=== PATIENT | male | born 1980 | race Caucasian/White ===

== ENCOUNTER 2018-06-25 08:48 | Emergency (ER) | payer BC, OTHER ==
[~2018-06-25] VITALS: Ht 190.5 cm; Wt 107.0 kg
--- OUTSIDE RECORDS SUMMARY | 2018-06-25 08:55 | XMS REPORT ---
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 Name Role Phone MANN LOVE Unavailable PROBLEMS Type Condition ICD9-CM Code [id number] Code Onset Dates Condition Status SNOMED Code Problem Allergic rhinitis, unspecified seasonality, unspecified trigger J30.9 Active 97994308 ALLERGIES Substance Reaction Event Type Date Status Azithromycin Unknown Drug Allergy Feb, Active Codeine Unknown Drug Allergy Feb, Active ENCOUNTERS Encounter Location Date Diagnosis [facility] [address] [place] [address] Mar, [facility] [address] [place] [address] Feb, Dental examination Z01.20 and Caries K02.9 [place] [id number] [place] [address] Feb, Physical exam Z00.00 and Other urethral stricture, male, unspecified site N35.819 [place] [address] [address] Jan, 2018 Allergic rhinitis, unspecified seasonality, unspecified trigger J30.9 ; Dysfunction of both eustachian tubes H69.83 and Stricture of 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, unspecified stricture type N35.911 [facility] [address] [address] Oct, Dental examination Z01.20 [facility] [id number] [place] [address] Jul, [place] [address] [place] [address] Jul, [place] [id number] [address] Jan, [facility] [address] [address] Jan, [facility] [address] [address] Jan, [facility] [address] [address] Jan, [facility] [address] [address] Dec, [facility] [address] [place] [id number] Nov, [facility] [address] [place] [address] Sep, [facility] [id number] [address] Sep, [facility] [address] [address] Sep, IMMUNIZATIONS No Known Immunizations SOCIAL HISTORY Never Assessed REASON FOR VISIT Katiana MANZANO PLAN OF CARE Activity Details Follow Up 45 MIN SURG TE Reason:TE #2 SURG VITAL SIGNS MEDICATIONS Medication Instructions Dosage Frequency Start Date End Date Duration Status Albuterol Sulfate 0.63 mg/3 mL Sep, Not-Taking Flonase 50 mcg/actuation 1 sprays by Nasal route 2 times per dayin each nostril Jan, Not-Taking Amoxicillin 500 mg Orally every 6 hrs 1 capsule 6h Feb, 7 days Active Flonase 50 mcg/act Nasally Once a day 1 spray in each nostril 24h Jan, 30 day(s) Not-Taking PredniSONE 20 mg Orally Once a day 2 tablets 24h Jan, 5 days Not-Taking Magic Mouthwash Apply medicated swab to sore areas of the mouth to numb the pain As needed Dip cotton swab into medication Feb, As needed Active RESULTS No Results PROCEDURES Procedure Date Ordered Result Body Site LTD ORAL EVALUATION - PROBLEM FOCUS Mar 16, 2018 INTRAORL-PERIAPICAL 1 FILM 44649 Mar 16, 2018 INSTRUCTIONS MEDICATIONS ADMINISTERED No Known Medications MEDICAL (GENERAL) HISTORY Type Description Date Medical History asthma Surgical History Hernia repair 2016 Surgical History hernia repair 2001
--- OUTSIDE RECORDS SUMMARY | 2018-06-25 08:56 | XMS REPORT ---
Author HEATHER Simmons e[employer] Address Unknown Phone Unavailable Care Team Providers Care Reel Slitter Name Role Phone HEATHER CANTU CP Unavailable Allergies, Adverse Reactions, Alerts Substance Reaction Event Type Azithromycin Info Not Available Drug Allergy Codeine Info Not Available Drug Allergy Problems Problem Type Condition Code Onset Dates Condition Status Problem Personal history of other allergy, other than to medicinal agents V15.09 Active Problem Pain in thoracic spine 724.1 Active Problem Acute serous otitis media 381.01 Active Problem Abdominal pain, unspecified site 789.00 Active Assessment Dental examination Z01.20 Active Medications No Known Medications Procedures Procedure Coding System Code Date PANORAMIC FILM SEE ALSO CODE 59960 CPT-4 D0330 November 11, 2015 LTD ORAL EVALUATION - PROBLEM FOCUS CPT-4 D0140 November 11, 2015 Results No Known Results Summary Purpose eClinicalWorks Submission
--- OUTSIDE RECORDS SUMMARY | 2018-06-25 08:56 | XMS REPORT ---
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 Name Role Phone REX ERNANDEZ Unavailable PROBLEMS Type Condition ICD9-CM Code [id number] Code Onset Dates Condition Status SNOMED Code Problem Allergic rhinitis, unspecified seasonality, unspecified trigger J30.9 Active 51936229 ALLERGIES Substance Reaction Event Type Date Status Azithromycin Unknown Drug Allergy Feb, Active Codeine Unknown Drug Allergy Feb, Active ENCOUNTERS Encounter Location Date Diagnosis [facility] [id number] [place] [address] Feb, Physical exam Z00.00 and Other urethral stricture, male, unspecified site N35.819 [facility] [place] [id number] [place] [address] 17 Jan, 2018 Allergic rhinitis, unspecified seasonality, unspecified trigger J30.9 ; Dysfunction of both eustachian tubes H69.83 and Stricture of 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, unspecified stricture type N35.911 [place] [address] [address] Oct, Dental examination Z01.20 [facility] [place] [address] [place] [address] Jul, [place] [id number] [place] [address] Jul, [place] [id number] [place] [address] Jan, [place] [id number] [address] Jan, [place] [address] [place] [address] Jan, [facility] [place] [address] [facility] [id number] [address] Jan, [facility] [place] [address] [facility] [id number] [address] Dec, [facility] [place] [id number] [address] Nov, [facility] [place] [id number] [address] Sep, [facility] [place] [id number] [address] Sep, [facility] [place] [id number] [address] Sep, IMMUNIZATIONS No Known Immunizations SOCIAL HISTORY Never Assessed REASON FOR VISIT Physical Pt in for physical, states he is concerned that is b/p is usually elevated. OTIS Cordoba PLAN OF CARE Activity Details Follow Up prn. 3 months or as indicated by lab Reason: Pending Test LIPID PANEL Pending Test CMP Pending Test CBC VITAL SIGNS Height 75 in 2018-02-22 Weight 235.4 lbs 2018-02-22 Temperature 97.8 degrees Fahrenheit 2018-02-22 Heart Rate 76 bpm 2018-02-22 Respiratory Rate 18 2018-02-22 BMI 29.42 kg/m2 2018-02-22 Blood pressure systolic 112 mmHg 2018-02-22 Blood pressure diastolic 72 mmHg 2018-02-22 MEDICATIONS Medication Instructions Dosage Frequency Start Date End Date Duration Status PredniSONE 20 mg Orally Once a day 2 tablets 24h Jan, 5 days Not-Taking Clobetasol Propionate 0.05 % Externally Twice a day 1 application to affected area 12h Feb, Feb, 10 day(s) Active Flonase 50 mcg/actuation 1 sprays by Nasal route 2 times per dayin each nostril Jan, Not-Taking Albuterol Sulfate 0.63 mg/3 mL Sep, Not-Taking Flonase 50 mcg/act Nasally Once a day 1 spray in each nostril 24h Jan, 30 day(s) Not-Taking RESULTS No Results PROCEDURES Procedure Date Ordered Result Body Site COMPLETE CBC W/AUTO DIFF WBC Feb 22, 2018 LIPID PANEL Feb 22, 2018 COMPREHEN METABOLIC PANEL Feb 22, 2018 INSTRUCTIONS MEDICATIONS ADMINISTERED No Known Medications MEDICAL (GENERAL) HISTORY Type Description Date Medical History asthma Surgical History Hernia repair 2016 Surgical History hernia repair 2002
--- NOTE | 2018-06-25 09:23 | ED Abdominal Pain ---
General Chief Complaint: Back, left testicle, left buttock and rectal region pain Stated Complaint: RECTAL/TESTICAL/BACK PAIN Source of Information: Patient Exam Limitations: No Limitations History of Present Illness Date Seen by Provider: Jun 25, 2018 Time Seen by Provider: 09:12 38 y/o M with history of L testicular varicocele presents with intermittent non- radiating sharp L testicular pain for 6 months. No penile discharge or pain. Has seen a urologist and told he needs surgery for this issue. In addition, having intermittent "muscle" low back pain and L buttock shooting pains that are sharp and needle like with some intermittent numbness in his L buttock when he is seated too long. No falls, trips, MVC, or back trauma. No saddle anesthesia. He does not have urinary retention or difficulty holding his stools/ bowel incontinence. No hematuria, no kidney stone history. States he decided to come to the ED today for evaluation of these issues because they have been going on so long they are "gnawing at him". No history of IVDA, no fevers, chills. Allergies and Home Medications Allergies Uncoded Allergies: ERYTHROMYCIN (Adverse Reaction, Unknown, 06/25/18) Patient Home Medication List Home Medication List Reviewed: Yes Review of Systems Review of Systems Constitutional: No chills, No fever, No weakness EENTM: No Blurred Vision, No Double Vision Respiratory: Denies Cough, Denies Shortness of Air Cardiovascular: Denies Chest Pain, Denies Edema Gastrointestinal: Denies Abdominal Pain, Denies Nausea Genitourinary: See HPI; Denies Discharge, Denies Flank Pain, Denies Hematuria; Pain (L testicle) Musculoskeletal: back pain, muscle pain Skin: No lesions, No rash Past Hmrrqsc-Sokwab-Ifyzew Hx Past Med/Social Hx: Reviewed Nursing Past Med/Soc Hx Patient Social History Alcohol Use: Denies Use Recreational Drug Use: Yes (marijuana) 2nd Hand Smoke Exposure: Yes Recent Foreign Travel: No Contact w/Someone Who Travel: No Recent Hopitalizations: No Physical Abuse: No Sexual Abuse: No Past Medical History Surgeries: Yes (R/L ingiunal hernia) Abdominal Respiratory: Yes Asthma Cardiac: No Neurological: No Genitourinary: No Gastrointestinal: No Musculoskeletal: No Endocrine: No HEENT: No Cancer: No Psychosocial: No Integumentary: No Blood Disorders: No Adverse Reaction/Blood Tranf: No Physical Exam Vital Signs Vital Signs - First Documented 06/25/18 09:17 Temp 97.1 Pulse 91 Resp 15 B/P (MAP) 159/93 (115) Pulse Ox 99 O2 Delivery Room Air Capillary Refill : Height/Weight/BMI Height: '" Weight: lbs. oz. kg; BMI Method: General Appearance: WD/WN, no apparent distress HEENT: PERRL/EOMI, normal ENT inspection Neck: full range of motion, supple Respiratory: chest non-tender, lungs clear, normal breath sounds, no respiratory distress, no accessory muscle use Cardiovascular: normal peripheral pulses, regular rate, rhythm, no edema, no gallop, no JVD, no murmur Gastrointestinal: normal bowel sounds, non tender, soft, no organomegaly, no pulsatile mass Genital/Rectal: tenderness (L testicular tenderness at varicocele), other (+ L varicocele, otherwise normal male) Extremities: normal range of motion, non-tender, normal inspection, no pedal edema, no calf tenderness Back: normal inspection, no CVA tenderness, no vertebral tenderness Male: no hernia; No inguinal tenderness Neurologic/Psychiatric: alert, normal mood/affect, oriented x 3 Skin: normal color, warm/dry Lymphatic: no adenopathy Progress/Results/Core Measures Results/Orders Lab Results Laboratory Tests Test 06/25/18 09:40 Range/Units Urine Color YELLOW Urine Clarity CLEAR Urine pH 5.5 5-9 Urine Specific [place] >1.030 1.016-1.022 Urine Protein NEGATIVE NEGATIVE Urine Glucose (UA) NEGATIVE NEGATIVE Urine Ketones NEGATIVE NEGATIVE Urine Nitrite NEGATIVE NEGATIVE Urine Bilirubin NEGATIVE NEGATIVE Urine Urobilinogen 0.2 NORMAL MG/DL Urine Leukocyte Esterase NEGATIVE NEGATIVE Urine RBC (Auto) NEGATIVE NEGATIVE Urine RBC NONE /HPF Urine WBC NONE /HPF Urine Squamous Epithelial Cells 0-2 /HPF Urine Crystals NONE /LPF Urine Bacteria NONE /HPF Urine Casts NONE /LPF Urine Mucus TRACE /LPF Urine Culture Indicated NO My Orders Orders - PATO BERKOWITZ MD Urinalysis (06/25/18 09:30) Lumbar Spine 2 Or 3 View (06/25/18 09:30) Vital Signs/I&O 06/25/18 09:17 Temp 97.1 Pulse 91 Resp 15 B/P (MAP) 159/93 (115) Pulse Ox 99 O2 Delivery Room Air Progress Progress Note #1: Progress Note Testicular issues have been going on for around 6 months, have not changed. He is seeing a for this. Back symptoms are relatively new, sounds like he is having sciatica. Offered pain medications at the time of my initial exam, he declined. Will XR spine and check urine. Patient is sexually active with one partner, not concerned for STD. Progress Note #2: Progress Note discussed results of testing, reason for close follow up. Patient declines Rx for anti-inflammatory meds or pain meds. Strict return precautions discussed. Diagnostic Imaging Diagonstic Imaging: Xray Plain Films/CT/US/NM/MRI: other (L spine) Comments Impression: 1: There is a compression fracture deformity of the L1 vertebra with no cortical disruption and may be chronic. If there is concern for acute fracture, then CT scan would better evaluate. 2: There is thoracolumbar spine degenerative disease with levo scoliosis. Departure Impression Primary Impression: Sciatica associated with disorder of lumbar spine Additional Impression: Compression fracture of L1 vertebra Disposition: 01 HOME, SELF-CARE Condition: Stable Departure-Patient Inst. Decision time for Depature: 10:27 Referrals: REX ERNANDEZ (PCP) Primary Care Physician [facility] (Family) Primary Care Physician Patient Instructions: Sciatica (DC), Vertebral Compression Fracture (DC) PATO BERKOWITZ MD Jun 25, 2018 09:23
--- NOTE | 2018-06-25 09:25 | NUR ---
Assisted MD with testicular exam at this time.
--- NOTE | 2018-06-25 10:10 | Diagnostic Imaging Report ---
Clinical indication: Patient portions have pain and low back on the left, testicle and rectal area. Exam: X-ray of the lumbar spine, 3 views. Comparison: None. There is a mild compression deformity of the upper endplate of the L1 vertebra with no cortical disruption and may be chronic. Otherwise there is no concern for acute lumbar spine fracture or dislocation. There is straightening of the thoracolumbar spine posture. There is incompletely imaged levoscoliosis of the thoracolumbar spine. There is mild loss of intervertebral disc height at the T12-L1, L1-L2, and L3-L4 levels. There is mild lower lumbar spine facet arthropathy. There is mild hypertrophic spurs involving the thoracolumbar spine. Sacroiliac joints are unremarkable. Impression: 1: There is a compression fracture deformity of the L1 vertebra with no cortical disruption and may be chronic. If there is concern for acute fracture, then CT scan would better evaluate. 2: There is thoracolumbar spine degenerative disease with levo scoliosis. Dictated by: Dictated on workstation # [id number]
[2018-06-25 10:19] LABS: BILIRUBIN,URINE NEGATIVE (NEGATIVE); CLARITY,URINE CLEAR; COLOR,URINE YELLOW; GLUCOSE, URINE (UA) NEGATIVE (NEGATIVE); KETONES,URINE NEGATIVE (NEGATIVE); NITRITE,URINE NEGATIVE (NEGATIVE); PH,URINE 5.5 (5-9); PROTEIN,URINE NEGATIVE (NEGATIVE); UROBILINOGEN,URINE 0.2 MG/DL (NORMAL)
[2018-06-25 10:20] LABS: LEUKOCYTE ESTERASE ,URINE NEGATIVE (NEGATIVE); SQUAMOUS EPITHELIAL CELL,UR 0-2 /HPF
[2018-06-25 10:36] VITALS: BP 144/68
== END 2018-06-25 10:36 | disposition home or self-care (01) ==
LOC: EDUNIT# 08:48 → ER FS 08:51
DX: S32.010A Wedge compression fracture of first lumbar vertebra, initial encounter for closed fracture (principal); M54.42 Lumbago with sciatica, left side; J45.909 Unspecified asthma, uncomplicated; F12.10 Cannabis abuse, uncomplicated; Z91.041 Radiographic dye allergy status; Z98.890 Other specified postprocedural states; X58.XXXA Exposure to other specified factors, initial encounter
CPT/HCPCS: 72100; 81000

== ENCOUNTER → 2018-07-05 | Outpatient (CLI) | payer BC ==
--- NOTE | 2018-07-05 11:43 | Diagnostic Imaging Report ---
PROCEDURE: US Gallbladder. TECHNIQUE: Multiple real-time grayscale images were obtained over the right upper quadrant in various projections. INDICATION: Epigastric pain. FINDINGS: The liver is normal in size at 16.9 cm. No discrete liver mass is identified. The portal vein is patent and shows normal direction of flow. The gallbladder is without stones or sludge. No wall thickening or biliary duct dilatation is seen. The pancreas was obscured by bowel gas. Right kidney is unremarkable. No calculi or hydronephrosis is seen. There is no ascites. IMPRESSION: Unremarkable gallbladder ultrasound. Dictated by: Dictated on workstation # [id number]
== END ==
LOC: RAD FS 08:20
PROVIDERS: ATTEND Surgery
DX: R10.13 Epigastric pain (principal)
CPT/HCPCS: 76705

== ENCOUNTER → 2018-12-05 | Outpatient (CLI) | payer BC ==
--- NOTE | 2018-12-05 14:57 | Diagnostic Imaging Report ---
INDICATION: Lower abdominal pain. FINDINGS: The lungs are clear. The heart size and vascularity are normal. There is no effusion or pneumothorax. Bowel gas pattern is unremarkable. No significant elevation of the fecal load. There are no air-fluid levels. No free gas. IMPRESSION: No acute-appearing abnormality. Dictated by: Dictated on workstation # [id number]
== END ==
LOC: RAD FS 14:37
PROVIDERS: ATTEND Family Medicine
DX: R10.30 Lower abdominal pain, unspecified (principal)
CPT/HCPCS: 74022

== ENCOUNTER 2019-01-14 09:30 | Outpatient (CLI) | payer BC ==
[~2019-01-14] VITALS: Ht 182.9 cm; Wt 109.9 kg
[2019-01-14] MEDS ORDERED: RT-ALBUINH IH (09:44)
== END 2019-01-14 10:03 | disposition home or self-care (01) ==
LOC: PREOP 09:30
PROVIDERS: ATTEND Surgery
DX: Z01.818 Encounter for other preprocedural examination (principal)

== ENCOUNTER 2019-01-15 12:44 | Day surgery (SDC) | payer BC ==
[~2019-01-15] VITALS: Ht 182.9 cm; Wt 109.9 kg
[~2019-01-15 12:44] MED LIST: RT-ALBUINH IH
[2019-01-15 12:55] VITALS: BP 141/77
[2019-01-15] MEDS ORDERED: LACTATED RINGERS 1,000 ML IV ONE (12:58)
[2019-01-15] MEDS ORDERED: LACTATED RINGERS 1,000 ML IV PRN (13:15)
[2019-01-15] MEDS ORDERED: LIDOCAINE PF 1% 5 ML (XYLOCAINE) AMP ONE (13:34)
--- NOTE | 2019-01-15 13:45 | Progress Note-Pre Operative ---
Pre-Operative Progress Note H&P Reviewed The H&P was reviewed, patient examined and no changes noted. Date Seen by Provider: Jan 15, 2019 Time Seen by Provider: 13:44 Date H&P Reviewed: Jan 15, 2019 Time H&P Reviewed: 13:44 Pre-Operative Diagnosis: llq abd pain, anorectal pain LESVIA ROSENBAUM DO Jan 15, 2019 13:45
[2019-01-15 14:10] VITALS: BP 118/69
[2019-01-15] MEDS ORDERED: MIDAZOLAM 2 MG/2 ML (VERSED) VIAL ONE (14:12)
[2019-01-15] MEDS ORDERED: PROPOFOL INJECTION 50 ML IV ONE (14:12)
[2019-01-15 14:15] VITALS: BP 111/63
--- NOTE | 2019-01-15 14:15 | Progress Note-Post Operative ---
Post-Operative Progess Note Surgeon (s)/Fiberglass Boat Maker (s) Surgeon LESVIA ROSENBUAM DO Fiberglass Boat Maker: na Pre-Operative Diagnosis llq abd pain, anorectal pain Post-Operative Diagnosis colon polyps, minimal rectal inflammation Procedure & Operative Findings Date of Procedure 01/15/19 Procedure Performed/Findings colonoscopy c hot bx polypectomy x 2 and cold biopsy rectum Anesthesia Type per automatic edger Estimated Blood Loss Estimated blood loss (mL): none Specimens/Packing Specimens Removed sigmoid polyps, rectal inflammation LESVIA ROSENBAUM DO Jan 15, 2019 14:15
--- NOTE | 2019-01-15 14:17 | Discharge Inst-Simple/Standard ---
Discharge Inst-Standard Patient Instructions/Follow Up Plan of Care/Instructions/FU: 2 weeks Makayla Activity as Tolerated: Yes Discharge Diet: Regular Diet LESVIA ROSENBAUM DO Jan 15, 2019 14:16
[2019-01-15 14:20] VITALS: BP 112/64
[2019-01-15 14:40] VITALS: BP 141/95
--- NOTE | 2019-01-15 14:42 | Anesthesia-General Post-Op ---
MAC Patient Condition Mental Status/LOC: Same as Preop Cardiovascular: Satisfactory Nausea/Vomiting: Absent Respiratory: Satisfactory Pain: Controlled Complications: Absent Post Op Complications Complications None Follow Up Care/Instructions Patient Instructions None needed. Anesthesiology Discharge Order Discharge Order Patient is doing well, no complaints, stable vital signs, no apparent adverse anesthesia problems. No complications reported per nursing. SAMIA GONZALEZ CRNA Jan 15, 2019 14:42
[2019-01-15 15:05] VITALS: BP 141/95
--- NOTE | 2019-01-15 18:48 | OPERATIVE REPORT ---
DATE OF SERVICE: 01/15/2019 PREOPERATIVE DIAGNOSES: Left lower quadrant abdominal pain, anorectal pain. POSTOPERATIVE DIAGNOSES: Colon polyps, minimal rectal inflammation. PROCEDURE: Colonoscopy with hot biopsy polypectomy x2 and cold biopsy of the rectum. SURGEON: Lesvia Benavides DO ANESTHESIA: Per DATA DESIGNER. ESTIMATED BLOOD LOSS: None. COMPLICATIONS: None. INDICATIONS: The patient is a 38-year-old male who has been having some slight left lower quadrant abdominal pain and anorectal pain. He understands risks and benefits of procedure and wished to proceed with procedure. Consent was signed in the chart. DESCRIPTION OF PROCEDURE: The patient was taken to the endoscopy suite, placed in left lateral recumbent position. Timeout was performed. Digital rectal exam was performed. There were no palpable polyps, masses or ulcerations. Scope was inserted in the rectum, advanced all the way to the cecum with minimal difficulty. Prep was adequate. Scope was then slowly retracted back. There were no polyps, mass or ulceration of the cecum, ascending, transverse, and descending colon. In the sigmoid colon, two small polyps were present, which hot biopsy polypectomies were performed. Scope was continuously retracted back into the rectum where there are some slight edematous changes, which cold biopsy was obtained. Scope was retroflexed noting no other pathology. Scope was returned to its normal position, slowly withdrawn until completely removed. The patient tolerated procedure well without any complications, taken to recovery room in stable condition. RECOMMENDATIONS: The patient will follow up in the office in 2 weeks to discuss pathology results. We would recommend repeat colonoscopy in 5 years due to polyps. Any issues before that, will be seen at that time. Job ID: [id number] DocumentID: [id number] Dictated Date: 01/15/2019 14:22:18 Buttermilk Drier Operator Date: 01/15/2019 18:47:07 Dictated By: LESVIA BENAVIDES DO
== END 2019-01-15 14:50 | disposition home or self-care (01) ==
LOC: ENDO 12:44
PROVIDERS: ATTEND Surgery
DX: D12.5 Benign neoplasm of sigmoid colon (principal); K62.89 Other specified diseases of anus and rectum; J45.909 Unspecified asthma, uncomplicated; E66.9 Obesity, unspecified; Z68.32 Body mass index [BMI] 32.0-32.9, adult; Z88.1 Allergy status to other antibiotic agents; Z88.5 Allergy status to narcotic agent; Z79.899 Other long term (current) drug therapy; Z82.49 Family history of ischemic heart disease and other diseases of the circulatory system; Z87.891 Personal history of nicotine dependence

== ENCOUNTER 2019-04-16 08:00 | Outpatient (RCR) | payer BC ==
[2019-06-14] MEDS ORDERED: PANT40TA2 PO (13:16)
[2019-06-14] MEDS ORDERED: SUCR1TAB36 PO (13:16)
== END 2019-07-15 | disposition home or self-care (01) ==
LOC: LAB 08:00
PROVIDERS: ATTEND Surgery
DX: K62.89 Other specified diseases of anus and rectum (principal)
CPT/HCPCS: 87328; 87329

== ENCOUNTER → 2019-04-18 | Outpatient (CLI) | payer BC | LOC: LAB FS 10:43 | PROVIDERS: ATTEND Surgery | DX: K62.89 Other specified diseases of anus and rectum (principal) ==

== ENCOUNTER → 2019-06-13 | Outpatient (CLI) | payer BC ==
[~2019-06-13] MED LIST changes: +PANT40TA2 PO; +SUCR1TAB36 PO
== END | disposition home or self-care (01) ==
LOC: PREOP 06:16
PROVIDERS: ATTEND Surgery
DX: Z01.818 Encounter for other preprocedural examination (principal)

== ENCOUNTER 2019-06-14 10:58 | Day surgery (SDC) | payer BC, OTHER ==
[2019-06-14] VITALS (10 sets, daily range): BP systolic 108–139; BP diastolic 58–81
[~2019-06-14] VITALS: Ht 190.5 cm; Wt 109.9 kg
[~2019-06-14 10:58] MED LIST changes: -PANT40TA2 PO; -SUCR1TAB36 PO
[2019-06-14] MEDS ORDERED: LACTATED RINGERS 1,000 ML IV ONE (11:10)
[2019-06-14] MEDS ORDERED: LACTATED RINGERS 1,000 ML IV PRN (11:15)
[2019-06-14] MEDS ORDERED: HURRICAINE EXT TUBE (BENZOCAINE) XX PRN (11:15)
[2019-06-14] MEDS ORDERED: MIDAZOLAM 2 MG/2 ML (VERSED) VIAL ONE (11:44)
[2019-06-14] MEDS ORDERED: proPOfol 200 MG/20 ML (DIPRIVAN) VIAL IV ONE (11:44)
--- NOTE | 2019-06-14 12:35 | Progress Note-Pre Operative ---
Pre-Operative Progress Note H&P Reviewed The H&P was reviewed, patient examined and no changes noted. Date Seen by Provider: Jun 14, 2019 Time Seen by Provider: 12:35 Date H&P Reviewed: Jun 14, 2019 Time H&P Reviewed: 12:35 Pre-Operative Diagnosis: luq, rlq abd pain and GERD LESVIA ROSENBAUM DO Jun 14, 2019 12:35
[2019-06-14] MEDS ORDERED: PANT40TA2 PO (13:16)
[2019-06-14] MEDS ORDERED: SUCR1TAB36 PO (13:16)
--- NOTE | 2019-06-14 13:17 | Discharge Inst-Simple/Standard ---
Discharge Inst-Standard Discharge Medications New, Converted or Re-Newed RX: Transmitted to Pharmacy Patient Instructions/Follow Up Plan of Care/Instructions/FU: 2 weeks kevan Activity as Tolerated: Yes Discharge Diet: Regular Diet LESVIA ROSENBAUM DO Jun 14, 2019 13:17
--- NOTE | 2019-06-14 13:22 | Progress Note-Post Operative ---
Post-Operative Progess Note Surgeon (s)/Electric Blasting Cap Assembler (s) Surgeon LESVIA ROSENBAUM DO Electric Blasting Cap Assembler: na Pre-Operative Diagnosis luq, rlq abd pain and GERD Post-Operative Diagnosis antral ulcer, hiatal herina, ge polyp, gastritis, normal colon Procedure & Operative Findings Date of Procedure 06/14/19 Procedure Performed/Findings egd c biopsies colonoscopy Anesthesia Type per [facility] Estimated Blood Loss Estimated blood loss (mL): scant Specimens/Packing Specimens Removed antrum, ge polyp, ge LESVIA ROSENBAUM DO Jun 14, 2019 13:22
--- NOTE | 2019-06-14 14:41 | Anesthesia-General Post-Op ---
MAC Patient Condition Mental Status/LOC: Same as Preop Cardiovascular: Satisfactory Nausea/Vomiting: Absent Respiratory: Satisfactory Pain: Controlled Complications: Absent Post Op Complications Complications None Follow Up Care/Instructions Patient Instructions None needed. Anesthesiology Discharge Order Discharge Order Patient was seen after the procedure and he was doing well, no complaints, stable vital signs, no apparent adverse anesthesia problems. PIOTR COHEN DO Jun 14, 2019 14:41
--- NOTE | 2019-06-14 20:49 | OPERATIVE REPORT ---
DATE OF SERVICE: 06/14/2019 PREOPERATIVE DIAGNOSES: Left upper quadrant and left lower quadrant abdominal pain, gastroesophageal reflux disease. POSTOPERATIVE DIAGNOSES: Antral ulcer, gastritis, hiatal hernia, GE polyp, normal colon. PROCEDURE: EGD with biopsies, colonoscopy. SURGEON: Lazaro Benavides DO ANESTHESIA: Per MDA. ESTIMATED BLOOD LOSS: Scant. COMPLICATIONS: None. SPECIMENS: Antrum, GE polyp, biopsy of GE junction. INDICATIONS: The patient is a 39-year-old male with left upper quadrant and left lower quadrant abdominal pain and reflux symptoms. He understands risks and benefits of procedure and wished to proceed with procedure. He has a history of proctitis as well. He understands risks and benefits of procedures and wished to proceed with procedure. Consent was signed in the chart. DESCRIPTION OF PROCEDURE: The patient was taken to the endoscopy suite, placed in left lateral recumbent position. Timeout was performed. Scope was inserted in mouth, down the esophagus, stomach and into the duodenum without difficulty. There were no polyps, mass or ulceration of the duodenum. Scope was slowly retracted back into the stomach where it was further insufflated. Erythematous changes and small ulcer present in the antrum. Biopsies of the antrum were obtained. Scope was then slowly retracted back and retroflexed noting hiatal hernia, no other pathology. Scope was then slowly retracted back and moved in its normal position, slowly withdrawn back into the distal esophagus. A polyp at the GE junction was present, which cold biopsies were obtained. The scope was retracted back and biopsy of the GE junction was obtained. Scope was then slowly retracted back to completely remove noting no other pathology. Digital rectal exam was performed. There were no palpable polyps, masses or ulcerations. Scope was inserted in the rectum, advanced all the way to cecum with minimal difficulty. Prep was adequate. Scope was then slowly retracted back. There were no polyps, masses or ulcerations within the cecum, ascending, transverse, descending and sigmoid colon. Once in the rectum, scope was retroflexed noting no other pathology. Scope was returned to its normal position, slowly withdrawn until completely removed. The patient tolerated procedure well without any complications, taken to recovery room in stable condition. RECOMMENDATIONS: The patient will follow up in the office in 2 weeks to discuss pathology and symptoms at that time. We will start him on Protonix 40 mg daily and Carafate 1 gram four times a day. Any issues before that will be seen at that time. Job ID: [id number] DocumentID: [id number] Dictated Date: 06/14/2019 13:21:38 Hypo Splasher Date: 06/14/2019 20:49:00 Dictated By: DO ROSALIA AVENDAÑO
== END 2019-06-14 14:05 | disposition home or self-care (01) ==
LOC: ENDO 10:58
PROVIDERS: ATTEND Surgery
DX: K25.9 Gastric ulcer, unspecified as acute or chronic, without hemorrhage or perforation (principal); K29.70 Gastritis, unspecified, without bleeding; K44.9 Diaphragmatic hernia without obstruction or gangrene; K31.7 Polyp of stomach and duodenum; K21.9 Gastro-esophageal reflux disease without esophagitis; K31.89 Other diseases of stomach and duodenum; J45.909 Unspecified asthma, uncomplicated; Z87.891 Personal history of nicotine dependence

== ENCOUNTER → 2019-10-24 | Outpatient (CLI) | payer OTHER ==
[~2019-10-24] MED LIST changes: +CATHETER FLUSH 10 ML SYR IV PRN; +HOLD METFORMIN - RECEIVED CONTRAST 20 ML VIAL IV SCH; +IOHEXOL 350 MG/ML 100 ML (OMNIPAQUE 350) VIAL IV ONE; +NS 100 ML (IVPB) BAG IV ONE; +PANT40TA2 PO; +SUCR1TAB36 PO
--- NOTE | 2019-10-24 17:01 | Diagnostic Imaging Report ---
INDICATION: Abdominal pain. TECHNIQUE: Multiple contiguous axial images were obtained through the abdomen and pelvis after administration of intravenous contrast. Auto Exposure Controls were utilized during the CT exam to meet ALARA standards for radiation dose reduction. COMPARISON: There is no previous study for comparison. FINDINGS: The visualized portions of the lung bases are clear. There were no pleural fluid collections. There is no free intraperitoneal air. The liver shows no focal lesions. Gallbladder appears unremarkable. Spleen, adrenals, and pancreas appear normal. The kidneys bilaterally appear unremarkable. There is no retroperitoneal mass or adenopathy. There is no ascites or abnormal fluid question. Visualized bowel loops are not distended or thickened. The appendix appears normal. There is no pelvic mass or free fluid. No abdominal wall hernia is seen. IMPRESSION: Unremarkable CT of the abdomen and pelvis. Dictated by: Dictated on workstation # [id number]
== END ==
LOC: RAD FS 15:34
PROVIDERS: ATTEND Surgery
DX: R10.30 Lower abdominal pain, unspecified (principal); R10.10 Upper abdominal pain, unspecified
CPT/HCPCS: 74177

== ENCOUNTER → 2020-06-10 | Outpatient (CLI) | payer OTHER ==
[~2020-06-10] MED LIST changes: -CATHETER FLUSH 10 ML SYR IV PRN; -HOLD METFORMIN - RECEIVED CONTRAST 20 ML VIAL IV SCH; -IOHEXOL 350 MG/ML 100 ML (OMNIPAQUE 350) VIAL IV ONE; -NS 100 ML (IVPB) BAG IV ONE
--- NOTE | 2020-06-10 16:33 | Diagnostic Imaging Report ---
TECHNIQUE: Multiplanar multisequence MRI of the thoracic spine was performed without contrast. REASON FOR EXAM: Mid back pain. Fall a few years ago. COMPARISON: None. FINDINGS: No acute fracture or dislocation is seen in the lumbar spine. Alignment is anatomic. Scattered Schmorl's nodes are seen in the thoracic spine. No focal osseous lesions are identified. The bone marrow signal is unremarkable. The thoracic spinal cord has a normal appearance. No evidence of cord expansion. No epidural collections are seen. No significant spinal canal or foraminal stenosis is seen in the thoracic spine. No evidence of acute spinal canal stenosis. The paraspinal musculature is unremarkable. Included lungs are clear. IMPRESSION: 1. No acute fracture or dislocation in the thoracic spine. 2. No significant degenerative changes in the thoracic spine. No spinal canal or foraminal stenosis. Dictated by: Dictated on workstation # [id number]
== END ==
LOC: RAD 13:48
PROVIDERS: ATTEND Physician Assistant
DX: M54.6 Pain in thoracic spine (principal)
CPT/HCPCS: 72146

== ENCOUNTER → 2021-06-15 | Outpatient (CLI) | payer OTHER ==
--- NOTE | 2021-06-15 13:44 | Diagnostic Imaging Report ---
INDICATION: Right foot pain. TIME OF EXAM: 11:31 a.m. FINDINGS: Three views of the right foot were obtained. The metatarsals appear to be intact. Phalanges are intact. Midfoot and hindfoot are unremarkable. No fractures are seen. IMPRESSION: No acute bony abnormality is detected. Dictated by: Dictated on workstation # [id number]
== END ==
LOC: RAD FS 11:22
PROVIDERS: ATTEND Nurse Practitioner Family
DX: M79.671 Pain in right foot (principal)
CPT/HCPCS: 73630